=== PATIENT | female | born 1975 | race African-American/Black ===

== ENCOUNTER 2018-12-16 14:25 | Emergency (ER) | payer OTHER ==
[~2018-12-16] VITALS: Ht 170.2 cm; Wt 99.8 kg
[2018-12-16 14:50] LABS: URINE BILIRUBIN NEGATIVE (Negative); URINE BLOOD NEGATIVE (Negative); URINE CLARITY CLEAR; URINE COLOR YELLOW; URINE GLUCOSE-RANDOM NEGATIVE (Negative); URINE KETONES 2+ (Negative); URINE LEUKOCYTES-REFLEX NEGATIVE (Negative); URINE NITRITE-REFLEX NEGATIVE (Negative); URINE PROTEIN NEGATIVE (Negative); URINE SPECIFIC GRAVITY 1.015 (1.005-1.030); URINE UROBILINOGEN 0.2 E.U./dl (0.2-1.0)
[2018-12-16 15:38] LABS: HEMATOCRIT 37.2 % (37.0-47.0); HEMOGLOBIN 12.7 gm/dL (12.0-15.0); MCH 30.5 pg (26.0-34.0); MCHC 34.2 g/dL (28.0-37.0); MCV 89.2 fL (80.0-100.0); MPV 6.6 fl. (7.2-11.1); NUCLEATED RBCS 0 /100WBC; PLATELET COUNT* 339 thou/uL (150-400); RBC 4.16 mil/uL (4.20-5.00); RDW-CV 13.7 % (10.5-14.5); WBC 4.8 thou/uL (4.0-11.0)
[2018-12-16 16:01] LABS: ABSOLUTE LYMPHOCYTES 0.2 thou/uL (0.8-5.3); ABSOLUTE MONOCYTES 0.2 thou/uL (0.0-1.2); ABSOLUTE NEUTROPHILS 4.3 thou/uL (1.6-8.1)
[2018-12-16 16:02] LABS: PLATELET ESTIMATE ADEQUATE
[2018-12-16 16:04] LABS: ANION GAP 11 mmol/L (7-16); BUN 9 mg/dL (7-18); CALCIUM 9.1 mg/dL (8.5-10.1); CHLORIDE 97 mmol/L (98-107); CO2 25 mmol/L (21-32); CREATININE 0.9 mg/dL (0.6-1.3); GLUCOSE 93 mg/dL (70-99); POIKILOCYTOSIS 1+; POTASSIUM 3.3 mmol/L (3.5-5.1); SODIUM 133 mmol/L (136-145)
[2018-12-16 16:14] LABS: ALKALINE PHOSPHATASE 85 U/L (46-116); LIPASE 54 U/L (73-393); SGOT 15 U/L (15-37); SGPT 24 U/L (30-65); TOTAL BILIRUBIN 0.4 mg/dL (<0.1-1.0); TOTAL PROTEIN 8.2 g/dL (6.4-8.2); TROPONIN-I LEVEL <0.06 ng/mL (<0.06)
[2018-12-16 17:37] LABS: INFLUENZA B ANTIGEN None Detected (None Detect)
[2018-12-16] MEDS ORDERED: NABUMETONE 750750 M1 PO (17:51)
[2018-12-16] MEDS ORDERED: ONDANSETRON HCL4 M2 PO (17:51)
[2018-12-16] MEDS ORDERED: OSELB75 PO (17:51)
[2018-12-16] MEDS ORDERED: TRAMADOL 50 MG50 MG PO (17:54)
[2018-12-16 18:11] VITALS: BP 115/75
--- NOTE | 2018-12-17 12:56 | EKG ---
[place] [address] ELECTROCARDIOGRAM REPORT Name: FRANCISCOCAROLINE Godoy Room: [facility]#: [id number] Admission: 12/16/18 Attend Phys: Discharge: 12/16/18 Date of : 73 Report #: [id number] THIS REPORT FOR: //name// [facility] ED Test Date: 2018-12-16 Test Time: 15:40:29 Pat Name: CAROLINE SINGH Department: Room: Gender: F Automatic Profile Sander Operator: Ophelia MEYER : 1975 Requested By: Olive Macario Order Number: [id number] MD: Sarbjit Lo Measurements Intervals [place] Rate: 109 P: 53 OR: 163 QRS: 9 QRSD: 98 T: 4 QT: 329 QTc: 444 Interpretive Statements Sinus tachycardia Left atrial enlargement Low voltage, precordial leads Borderline T abnormalities, anterior leads No previous ECG available for comparison Electronically Signed On 12-17-2018 12:55:52 CDT by Sarbjit Lo [email or web address] <ELECTRONICALLY SIGNED> By: Sarbjit Lo MD, [facility] 12/17/18 1255 1540 1540 Sarbjit Lo MD, FAC /EPI
== END 2018-12-16 18:12 | disposition home or self-care (01) ==
LOC: M.ERS 14:25
PROVIDERS: Nurse Practitioner Family
DX: N28.1 Cyst of kidney, acquired (principal); J10.1 Influenza due to other identified influenza virus with other respiratory manifestations; M79.10 Myalgia, unspecified site; Z88.5 Allergy status to narcotic agent

== ENCOUNTER → 2021-05-23 | Outpatient (CLI) | payer OTHER ==
[~2021-05-23] MED LIST: NABUMETONE 750750 M1 PO; ONDANSETRON HCL4 M2 PO; OSELB75 PO; TRAMADOL 50 MG50 MG PO
[2021-05-23 18:01] LABS: ABSOLUTE BASOPHILS 0.1 thou/uL (0.0-0.2); ABSOLUTE EOSINOPHILS 0.1 thou/uL (0.0-0.7); ABSOLUTE LYMPHOCYTES 2.6 thou/uL (0.8-5.3); ABSOLUTE MONOCYTES 0.4 thou/uL (0.0-1.2); ABSOLUTE NEUTROPHILS 2.4 thou/uL (1.6-8.1); EOSINOPHILS 1.6 %; HEMATOCRIT 37.2 % (37.0-47.0); HEMOGLOBIN 12.5 gm/dL (12.0-15.0); LYMPHOCYTES 46.5 %; MCH 31.6 pg (26.0-34.0); MCHC 33.7 g/dL (28.0-37.0); MCV 93.8 fL (80.0-100.0); MONOCYTES 7.2 %; MPV 6.1 fl. (7.2-11.1); NUCLEATED RBCS 0 /100WBC; PLATELET COUNT* 366 thou/uL (150-400); POLYS 43.7 %; RBC 3.96 mil/uL (4.20-5.00); RDW-CV 13.7 % (10.5-14.5); WBC 5.6 thou/uL (4.0-11.0)
[2021-05-23 18:08] LABS: CALCIUM 9.2 mg/dL (8.5-10.1); CREATININE 0.8 mg/dL (0.6-1.3)
[2021-05-23 18:13] LABS: ALBUMIN 3.8 g/dL (3.4-5.0); TOTAL BILIRUBIN 0.4 mg/dL (<0.1-1.0); TOTAL PROTEIN 7.8 g/dL (6.4-8.2)
== END ==
LOC: M.RAD 16:57
PROVIDERS: ATTEND Internal Medicine
DX: M19.012 Primary osteoarthritis, left shoulder (principal); M41.84 Other forms of scoliosis, thoracic region; M50.122 Cervical disc disorder at C5-C6 level with radiculopathy; M48.02 Spinal stenosis, cervical region; R07.9 Chest pain, unspecified

== ENCOUNTER → 2021-05-28 | Outpatient (CLI) | payer OTHER | LOC: M.RAD 11:32 | PROVIDERS: ATTEND Internal Medicine | DX: Z12.31 Encounter for screening mammogram for malignant neoplasm of breast (principal) ==